=== PATIENT | male | born 1955 | race Caucasian/White ===

== ENCOUNTER 2018-05-23 12:37 | Day surgery (SDC) | payer OTHER, SELFPAY ==
--- NOTE | 2018-05-23 | PATH_ITS ---
[facility] Accession Number: [id number] . 01 Material submitted: . TRANSVERSE COLON POLYP AT 65CM . 02 Diagnosis: Transverse Colon Polyp at 65 cm: Colonic mucosa with no diagnostic abnormality, consistent with polypoid redundancy. Negative for serrated lesion, dysplasia or malignancy. Additional step sections examined. MRV/05/28/2018 . 02 Electronically signed: . Rg Carcamo MD, PhD, Pathologist NPI- [id number] . 01 Gross description: . TRANSVERSE COLON POLYP AT 65CM: Received in formalin are 2 fragment(s) of rivas, soft tissue measuring 0.4 x 0.3 x 0.2 cm to 0.3 x 0.3 x 0.2 cm submitted entirely in 1 cassette(s) /CKI /CKI . 02 Pathologist provided ICD-10: K63.5 . 02 CPT . 386983 Specimen Comment: A duplicate report has been generated due to demographic updates. Performed at: 01 [facility] [address], [place], [place] [id number] MD Odin Conrad MD Phone: [phone] Performed at: [facility] [address] [place], [place] [id number] MD Davy Horn MD Phone: [phone]
[2018-05-23 13:01] VITALS: BP 140/81; PULSE 44; RESP 15; TEMP 36.4; O2SAT 97; BMI 29.1
[2018-05-23] MEDS: SODIUM CHLORIDE 0.9% 1,000 ML 200 ML IV (13:18)
--- NOTE | 2018-05-23 13:58 | PM.HP.1 ---
History of Present Illness Date Patient Seen: 05/23/18 Time Patient Seen: 13:58 Chief complaint: 40548 SCREENING COLONOSCOPY Narrative: 63-year-old male who presents for colorectal screening. It has been 10 years since his last examination. On further history today he denies any recent gastrointestinal symptoms. No nausea, vomiting, diarrhea, constipation, change in bowel habits, loss of appetite, unexplained weight loss, abdominal pain, melena, hematochezia, or bright red blood per rectum. Patient History Medical History Snoring (Chronic) Obstructive sleep apnea of adult (Chronic) Excessive daytime sleepiness (Chronic) Benign prostatic hyperplasia (Acute) Erectile dysfunction (Chronic) Panic anxiety syndrome (Chronic) Raynauds syndrome (Chronic) Surgical History History of arthroscopy of both knees (Acute) History of colonoscopy (Acute) Family & Social History Family History: Reviewed 05/23/18 by Michael Morris MD Social History: household members spouse Meds Home Medications Medication Instructions Recorded Confirmed Type amlodipine 5 mg PO DAILY 05/23/18 05/23/18 History citalopram [Celexa] 20 mg PO DAILY 05/23/18 05/23/18 History Allergies Allergy/AdvReac Type Severity Reaction Status Date / Time No Known Drug Allergies Allergy Verified 05/23/18 12:57 Review of Systems Review of Systems All systems reviewed & are unremarkable except as noted in HPI and below Exam Vital Signs (past 8 hours): - 05/23/18 13:01 Temperature 97.6 F Pulse Rate 44 L Respiratory Rate 15 Blood Pressure 140/81 Pulse Oximetry 97 Oxygen Delivery Method Room Air Narrative Exam Narrative: Well-nourished well-developed male in no acute distress. Alert oriented x3 Sclera nonicteric Chest clear to auscultation bilaterally with regular rate and rhythm. No murmurs. Abdomen soft, nondistended, nontender, no masses Extremities show no clubbing, cyanosis, or edema Objective Labs Labs: No recent laboratory or radiographic studies for review Assessment & Plan Plan: Assessment/Plan Narrative: 63-year-old male presenting for colorectal screening since it has been 10 years from his last examination. Colonoscopy is once again recommended today. Technical details of the procedure were discussed. Risks, benefits, alternatives were explained. Risks including but not limited to sedation, aspiration, bleeding, pain, missed lesion, incomplete examination, need for further radiographic studies, colonic perforation, need for major abdominal surgery, and all attendant risks of major surgery were explained in detail. Questions were answered to his satisfaction, and he voiced understanding. Consent was placed on the chart. We will proceed as above.
--- NOTE | 2018-05-23 14:01 | PM.PREOP ---
Pre-operative Note Interval Note Pre-op Check: Yes History & Physical Reviewed by Physician, Yes Exam Performed and Yes History & Physical exam performed today by Physician Changes: No H&P completed within 30 days and has changed as indicated here:: Patient seen and examined today. History physical examination placed on the chart. He requires colorectal screening. Colonoscopy will proceed today as planned. ASA Class (for procedural sedation): II
[2018-05-23] MEDS: MIDAZOLAM 5 MG/5 ML VIAL IV (14:11)
[2018-05-23] MEDS: fentaNYL 250 MCG/5 ML INJ IV (14:11)
--- NOTE | 2018-05-23 14:21 | PM.OP.ENDO ---
Operative Date/Time/Diagnoses Date of procedure: 05/23/18 Time of procedure: 14:21 Pre-op diagnosis: Colorectal screening Post-op diagnosis: other (Transverse colon polyp and sigmoid diverticulosis) Procedure & Clinicians Study performed: 1. Sedation per surgeon 2. Colonoscopy with cold forceps polypectomy Same procedure as scheduled: Yes Indications: 63-year-old male whose last colorectal surveillance examination was 10 years ago. He presents now for colonoscopy. Surgeon: Michael Morris Procedure Notes SCOAP/Timeout: Yes Procedure in detail: After obtaining informed consent, the patient was brought to the GI suite and placed in the left lateral decubitus position on the examination table. After placement of appropriate monitors, the patient was given incremental doses of Versed and Fentanyl until an appropriate level of sedation was achieved. A time out was held per SCOAP protocol. A digital rectal examination was performed and did not reveal any masses or obstructing lesions. The colonoscope was gently passed into the patient's anus and the entire colon navigated to the level of the cecum with minimal difficulty. Once in the cecum, the scope was withdrawn being sure to go before and beyond all mucosal folds and prominences and get an excellent examination. The findings are noted above. At the level of the rectal vault, the scope was retroflexed and the internal anal canal was examined. The scope was straightened and air aspirated from the colon. The instrument was removed from the patient's body and the procedure was concluded. The patient was allowed to awaken from sedation without difficulty and taken to the post-anesthesia care unit in good condition. Scope withdrawal time: 9:28 min Sedation minutes: 17 Findings: diverticulosis and polyp Specimen(s): other (Transverse colon polyp at 65 cm) Complications: none Recommendations: Colonscopy in 5 years (Pending biopsy results), High fiber diet and Will call with biopsy results Plan for aftercare: 1. Discharged home Follow up: as needed Disposition: PACU
[2018-05-23 14:24] VITALS: BP 127/80; PULSE 44; RESP 15; O2SAT 97
[2018-05-23 14:29] VITALS: BP 121/82; PULSE 42; RESP 15; O2SAT 95
[2018-05-23 14:34] VITALS: BP 120/79; PULSE 44; RESP 16; O2SAT 98
[2018-05-23 14:40] VITALS: BP 120/76; PULSE 44; RESP 16; O2SAT 100
== END 2018-05-23 14:50 | disposition home or self-care (01) ==
PROVIDERS: PCP Specialist; Visit Provider Surgery
PROC: 0DJD8ZZ Inspection of Lower Intestinal Tract, Via Natural or Artificial Opening Endoscopic (ICD-10-PCS; CPT 45378; principal; 2018-05-23 14:00)
DX: Z12.11 Encounter for screening for malignant neoplasm of colon (principal); K57.30 Diverticulosis of large intestine without perforation or abscess without bleeding; G47.33 Obstructive sleep apnea (adult) (pediatric); F41.0 Panic disorder [episodic paroxysmal anxiety]; I73.00 Raynaud's syndrome without gangrene; D12.3 Benign neoplasm of transverse colon
CPT/HCPCS: 45380; 99152; J2250; J3010

== ENCOUNTER → 2023-12-25 13:44 | Outpatient (CLI) | payer OTHER, SELFPAY ==
--- NOTE | 2023-12-25 13:48 | DI.RAD.S_ITS ---
PROCEDURE: XR THORACIC SPINE 3V INDICATIONS: thoracic back pain TECHNIQUE: 3 views of the thoracic spine were acquired. COMPARISON: None. FINDINGS: Bones: No fractures or dislocations. No suspicious bony lesions. Mild degenerative endplate changes are noted in mid to lower thoracic spine. 12 pairs of ribs are noted, and appear intact where visualized. Soft tissues: No paravertebral stripe thickening. IMPRESSION: Mild degenerative disc disease in mid to lower thoracic spine. No acute compression fracture or spondylolisthesis. Dictated by: Edward Azar M.D. on 12/25/2023 at 20:21 Approved by: Edward Azar M.D. on 12/25/2023 at 20:21
--- NOTE | 2023-12-25 13:48 | DI.RAD.S_ITS ---
PROCEDURE: XR LUMBAR SPINE MIN 4V INDICATIONS: low back pain TECHNIQUE: 5 views of the lumbar spine were acquired, including bilateral oblique views. COMPARISON: None. FINDINGS: Bones: 5 nonrib-bearing vertebrae are present. There is normal bony alignment.Degenerative endplate changes and loss of disc height at L3-4 through L5-S1 levels are seen with bilateral facet arthrosis. No vertebral body compression fractures. No suspicious bony lesions. Soft tissues: Overlying bowel gas pattern is normal. No suspicious soft tissue calcifications. Oblique images: No pars defects. IMPRESSION: [id number] degenerative disc disease in mid to lower lumbar spine. No acute compression fracture or spondylolisthesis. No gross pars defects. Dictated by: Edward Azar M.D. on 12/25/2023 at 20:20 Approved by: Edward Azar M.D. on 12/25/2023 at 20:20
== END ==
PROVIDERS: PCP Specialist; Referring Provider Anesthesiology; Visit Provider Anesthesiology
DX: M51.34 Other intervertebral disc degeneration, thoracic region (principal); M51.36 Other intervertebral disc degeneration, lumbar region; M54.50 Low back pain, unspecified
CPT/HCPCS: 72072; 72110

== ENCOUNTER → 2024-11-19 10:11 | Outpatient (CLI) | payer OTHER, SELFPAY ==
--- NOTE | 2024-11-19 10:12 | DI.RAD.S_ITS ---
PROCEDURE: XR CERVICAL SPINE 4V OR 5V INDICATIONS: NECK PAIN TECHNIQUE: 5 views of the cervical spine acquired. COMPARISON: None. FINDINGS: Bones: No acute fractures or dislocations to the T1 level. Oblique images demonstrate no bony foraminal stenoses. Multilevel disc space narrowing and degenerative endplate changes. Multilevel uncovertebral joint and facet hypertrophy. Oblique views demonstrate multifocal neural foraminal narrowing, most notably at the C3-4 through C5-6 levels on the left. Right neural foramina at the mid cervical spine levels are not well evaluated due to positioning. Right C2-3, C6-7 and C7-T1 neural foramina appear patent. Soft tissues: No prevertebral soft tissue swelling. IMPRESSION: 1. No acute osseous fracture or traumatic subluxation. 2. Moderate multilevel cervical spondylosis with neural foraminal narrowing. MRI could be performed for further evaluation if indicated clinically. Approved by: Marc Monteiro M.D. on 11/19/2024 at 10:32
== END ==
PROVIDERS: PCP Specialist; Referring Provider Physical Medicine & Rehabilitation; Visit Provider Physical Medicine & Rehabilitation
DX: M47.812 Spondylosis without myelopathy or radiculopathy, cervical region (principal); M48.02 Spinal stenosis, cervical region; M54.2 Cervicalgia; M16.0 Bilateral primary osteoarthritis of hip; M47.816 Spondylosis without myelopathy or radiculopathy, lumbar region; M51.27 Other intervertebral disc displacement, lumbosacral region; M25.552 Pain in left hip
CPT/HCPCS: 20611; 72050; 99214; J0702

== ENCOUNTER → 2025-06-09 11:58 | Outpatient (CLI) | payer OTHER, SELFPAY ==
--- NOTE | 2025-06-09 12:06 | EKG_ITS ---
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
== END ==
PROVIDERS: PCP Specialist; Referring Provider Orthopaedic Surgery Adult Reconstructive Orthopaedic Surgery; Visit Provider Orthopaedic Surgery Adult Reconstructive Orthopaedic Surgery
DX: Z01.818 Encounter for other preprocedural examination (principal)
CPT/HCPCS: 93005; 93010

== ENCOUNTER 2025-07-06 08:33 | Day surgery (SDC) | payer MEDICARE, OTHER, SELFPAY ==
[2025-07-01 13:25] VITALS: BMI 30.4
[2025-07-06] VITALS (12 sets, daily range): BP systolic 92–168; BP diastolic 51–81; PULSE 50–62; RESP 14–18; TEMP 35.6–36.6; O2SAT 90–99; BMI 35.6
--- NOTE | 2025-07-06 | DI.RAD.S_ITS ---
PROCEDURE: XR HIP W PEL IF DONE RT 2V
--- NOTE | 2025-07-06 06:00 | DI.RAD.S_ITS ---
PROCEDURE: XR HIP W PEL IF DONE RT 2V
[2025-07-06] MEDS: ACETAMINOPHEN 325 MG TABLET 975 MG PO (09:07)
[2025-07-06] MEDS: MELOXICAM 7.5 MG TABLET 15 MG PO (09:08)
[2025-07-06] MEDS: LACTATED RINGERS 1,000 ML 42 ML IV ×2 (09:09→11:36)
--- NOTE | 2025-07-06 09:43 | P.OP.PRE_ITS ---
Pre-operative Note
--- NOTE | 2025-07-06 09:43 | PM.PREOP ---
Pre-operative Note Interval Note History & Physical reviewed/Exam performed by Physician: Yes Changes to H&P: No
[2025-07-06] MEDS: TRANEXAMIC ACID 1,000 MG VIAL 1000 MG INJ ×2 (11:03→12:10)
[2025-07-06] MEDS: KETOROLAC 30 MG/ML VIAL 15 MG INJ (11:16)
--- NOTE | 2025-07-06 11:22 | SUR.OPER ---
Supine on padded [place] table with bilateral legs secured in padded positioning boots and suspended in positioning spars, operative leg in traction per surgeon. Head on one pillow. Both Arms secured on padded armboard <90 degrees abduction. Padded perineal post in place per surgeon. Surgeon in room to approve final position. All pressure points padded and covered.
--- NOTE | 2025-07-06 12:14 | P.OP_ITS ---
Operative Date/Time/Diagnoses
--- NOTE | 2025-07-06 12:14 | PM.OP.1 ---
Operative Date/Time/Diagnoses Date of procedure: 07/06/25 Time of procedure: 11:00 Pre-op diagnosis: Right hip osteoarthritis Post-op diagnosis: same Procedure & Clinicians Procedure: Right total hip arthroplasty Same procedure(s) as scheduled: Yes Surgeon: Antonio Holm Assisted?: Yes Community Engagement Leader: Shanna Lyles Anesthesia Type: Spinal, Sedation and Local Operative Notes Findings: Severe right hip arthritis Closure Type: primary Applied: implant(s) Estimated Blood Loss (mL): 250 Blood products transfused: none Procedure in detail: 1. Right Uncemented Direct Anterior [place] Total Hip Arthroplasty (50651) 2. Computer-Assisted Musculoskeletal Surgical Navigational Orthopedic Procedure Using Fluoroscopic Image Guidance (0054T) Implants: G7 PPS size 62 cup?with a +5 liner Z1 femoral stem size 9 standard offset? 40 mm +3.5 ceramic femoral head? Procedure Summary: This 70-year-old male patient had very robust bone quality and relatively large anatomy. He is 6 feet tall and 260 lb. Accordingly I utilized a large cup, 62 and utilized a lateralized liner in order to restore his [place] offset. After evaluation with the ortho grid I noted that he actually had excessive offset but leg lengths was appropriate and the stability was excellent as I was unable to manually reduce the hip without assistance through the traction table. I therefore implanted a standard offset stem which had less tension with the final construct was still excellent stability as I was unable to manually dislocate the hip. Procedure in Detail: This patient was seen preoperatively and evaluated for hip pain which was refractory to numerous nonoperative treatment modalities. Their hip pain correlated with radiographic changes demonstrating significant degeneration in the hip joint. The risks and benefits of continued nonoperative management versus operative management were discussed at length and all of the patient?s questions were answered. Additional educational materials providing further details beyond our discussion in clinic were provided via a publicly available patient education video which included the incidence of medical complications associated with total hip arthroplasty, reasons for revision following total hip arthroplasty, and patient satisfaction rates following total hip arthroplasty. With this understanding of the risks inherent to the procedure, the patient elected to move forward with operative management. Following preoperative optimization, the patient was scheduled for surgery. The patient was met in the preoperative holding area the day of the procedure and all questions were answered. The patient?s nares were swabbed in order to decolonize them from MRSA. Informed consent was signed and the right limb was marked with indelible ink.? The patient was brought back to the operating room where anesthesia was induced. The patient was transferred to the [place] table and all bony prominences were padded. The operative site was prepped and draped in the usual sterile fashion. Prior to incision, tranexamic acid and cefazolin were administered. Operative templating images were displayed demonstrating the anticipated implant sizes and correct operative extremity. A timeout procedure was performed verifying the patient?s identity, medical comorbidities, allergies, relevant medications, anesthesia type and the surgical plan. All present were in agreement. The assistance of a physician academic support assistant was required for positioning, room setup, soft tissue retraction and wound closure. Without this assistance, the procedure would have been significantly more challenging and time consuming.?? A direct anterior approach to the hip was utilized. This was performed with a longitudinal incision through a Heuter interval. The incision was planned 2 cm distal and 2 cm lateral to the ASIS extending towards the lateral patella, in line with the muscle body of the TFL. Following incision, the subcutaneous tissue was dissected while taking care to avoid injury to the lateral femoral cutaneous nerve. The fascia overlying the TFL was identified by dissecting off the overlying fat and identifying perforating vessels to the TFL. The TFL fascia was incised and dissected away from the medial border of the TFL. A retractor was placed over the superior femoral neck between the abductors and the hip capsule and used to reflect the TFL laterally. A [place] self-retainer was then placed in the distal aspect of the wound between the TFL and the rectus femoris. This was tensioned to open up the direct anterior interval and the lateral circumflex vessels were identified and coagulated using electrocautery. The floor of the TFL fascia was incised, exposing the pericapsular fat overlying the hip capsule. A second cobra retractor was placed on the inferior femoral neck. A retractor was placed on the anterior wall of the acetabulum and used to tension the reflected head of rectus femoris, which was then released in order to limit soft tissue tension. A capsulotomy was made in the midline of the anterior hip capsule in line with the femoral neck ending at the vastus tubercle. The anterior retractor was removed as soon as the capsulotomy was completed in order to limit the amount of time that a soft tissue retractor remained on the anterior wall and limit tension on the femoral nerve. Tag stitches were placed in the superior and inferior leaflets of the hip capsule. An Jeff soft tissue retractor was introduced over the tag stitches and tensioned in the interval between the rectus femoris and the TFL in order to retract and protect those muscles. The cobra retractors were replaced intracapsularly, with one over the superior neck in the pocket created by the base of the greater trochanter and the other on the femoral head. The capsulotomy was extended laterally to the base of the greater trochanter and medially to the lesser trochanter. This required externally rotating the hip. Once the lesser trochanter had been identified, a neck cut was planned according to measurements from preoperative templating. A ruler was cut at the length measured between the superior aspect of the lesser trochanter and the collar of the prosthesis. This line was extended towards the inferior aspect of the lateral cobra retractor to plan a cut which would leave minimal residual femoral neck laterally. The neck was cut at 60 degrees of external rotation along that line. A second cut was performed to remove a large napkin ring and facilitate head extraction. The napkin ring cut and femoral head were removed.?? A broad anterior wall retractor was placed between the labrum and the anterior capsule so that the anterior capsule would prevent capturing and pinching the femoral nerve anteriorly. An additional retractor was placed on the posterior wall. External rotation and traction were applied through the [place] table so that the cut surface of the femoral neck would not restrict access to the acetabulum. The labrum was excised sharply and the pulvinar was excised with electrocautery to limit bleeding from branches of the obturator artery. Acetabular reamers were selected based on preoperative templating and measurements of the excised femoral head. These were introduced into the acetabulum. Fluoroscopy was utilized to replicate a standing AP pelvis radiograph by centering over the pelvis, rotating until there was appropriate symmetry between the obturator foramen, and introducing caudal tilt to match the position of the pubic symphysis relative to the sacrococcygeal junction according to the patient?s anatomy. Once satisfied with the reaming depth corresponding to the preoperative template and the pinch fit between the columns, an appropriate sized acetabular cup was selected which would provide 1 mm of press-fit. This cup was introduced and manipulated until appropriate abduction and anteversion angles were obtained with careful attention to appropriate abduction and anteversion angles as evaluated by the position of the cup relative to the anterior and posterior guerrero of the acetabulum and the AP fluoroscopy which recreated the patient?s standing radiograph. The cup was impacted into place. Peripheral osteophytes were removed. The acetabular liner was then placed with care to ensure locking of the locking mechanism. Attention was then turned to the femur. All retractors were removed, traction was released, a retractor was placed in the interval between the hip capsule and the gluteus minimus. The lateral capsule was released using electrocautery. Traction was released and a [place] hook was placed posteriorly around the proximal femur at the level of the vastus ridge. The table height was lowered in order to restrict the tension on the anterior structures during hip hyperextension to limit the risk of femoral nerve palsy. With traction off and the hip at 90 degrees of external rotation, the hip was hyperextended and adducted while manually elevating the femur away from the acetabulum with the [place] hook to avoid hooking the greater trochanter on the pelvis. An asymmetric retractor was placed over the calcar and a broad double-pronged retractor was placed over the greater trochanter. The tag stitch capturing the lateral leaflet of the capsule was moved to the medial side, leaving the conjoined and piriformis tendons isolated in the face of the greater trochanter. The hip was externally rotated and elevated. A release of the conjoined tendon was necessary in order to obtain adequate exposure for broaching. The canal was opened with an opening broach and a rasp was used to remove cancellous bone. A rongeur was used to remove the residual lateral bone at the base of the greater trochanter to avoid placing the stem in varus. The femur was then broached to the appropriate sized stem yielding good rotational fit and fill of the canal as well as appropriate version of the stem trial. Neck and head trials were placed, all retractors were removed and the hip was returned to neutral abduction and extension. I then reduced the hip and manually trialed it before changing surgical gloves. Initial trialing was performed with a size 8 broach, a high offset neck and a +3.5 head. I initially manually externally rotated the hip and found that I could not dislocate the hip. I also found that it was very hard to even reduce the hip as I was unable to reduce the hip without assistance from a fracture table academic support assistant. I then locked the hip in 45 degrees of external rotation and dropped it to the floor with traction off which demonstrated no instability. An ortho grid overlay image demonstrated that the operative site had appropriate leg lengths but excess offset. AP and lateral hip fluoroscopic images were obtained to evaluate the broach size which demonstrated good canal fill. The hip was dislocated and I returned to the broaching position. Based on my evaluation during initial trialing I planned to transition from a high offset to a standard offset. When I returned to the broaching position I found that the stem was rotationally unstable so I upsized from a size 8 to a size 9 and sink the broach down to the same point at which the size 8 had sat. The definitive stem was placed and the trunnion was cleaned and dried. I placed a ceramic head onto the trunnion and impacted it into place on the [place] taper.?? All retractors were removed and the hip was reduced. A dilute mixture of betadine and peroxide was used to bathe the soft tissues during final fluoroscopic assessment. Appropriate component positioning was confirmed on an AP pelvis radiograph with the operative and nonoperative legs in 40 degrees of external rotation, evaluating leg length and offset. Appropriate stem fill was evaluated on AP and lateral hip radiographs. No previously unrecognized fractures were identified on these radiographs. There was no hip instability with maximum (95?) external rotation as well as a 45 degree drop test. The hip was copiously irrigated with pulse lavage. The capsule was closed with absorbable interrupted suture. The TFL fascia was closed with barbed suture while carefully protecting the lateral femoral cutaneous nerve from entrapment. A mixture of Ropivacaine, Epinephrine and Toradol was infiltrated throughout the soft tissues. The skin was closed with 2-0 and 3-0 sutures. Surgical glue was applied and a soft dressing was placed.??The sponge, instrument and needle counts were reported as being correct at the end of the case.??No obvious complications occurred. The patient was transferred from the [place] table back to a stretcher. The patient emerged from anesthesia without difficulty and was taken to the PACU in a stable condition.? Plan for aftercare: No hip precautions Weightbearing as tolerated Aspirin 81 twice per day for DVT prophylaxis Anticipate discharge home tomorrow. Patient will require [facility] transport home Multimodal pain regimen with no IV opioids ordered Follow up at [facility] in 2 weeks Complications: none Post-operative Condition: stable Disposition: observation
[2025-07-06] MEDS: LACTATED RINGERS 1,000 ML 100 ML IV ×2 (13:43→17:47)
--- NOTE | 2025-07-06 15:36 | PM.PN.IH.1 ---
Subjective Subjective Interval history: I came to check on Amol postoperatively. I found him resting comfortably. He had noticed cancelling headphones on and was listening to a postoperative recovery music playlist. He also has a meditation hakeem that he says he has been using for pain control the he plans to continue using postoperatively. He has minimal pain. He has intact sciatic and femoral nerve function. His dressing is clean dry and intact. Given his need for [employer] transportation home we are going to have him stay overnight and plan to discharge him in the morning after he has had a physical therapy session. Exam Vital Signs (past 8 hours): - 07/06/25 09:29 07/06/25 13:00 07/06/25 13:06 Temperature 97.8 F 97.7 F 97.7 F Pulse Rate 53 L 56 L 57 L Respiratory Rate 16 14 18 Blood Pressure 168/81 H 92/51 L 99/54 L Pulse Oximetry 99 98 98 Oxygen Delivery Method Room Air Simple Mask Nasal Cannula Oxygen Flow Rate 6 2 07/06/25 13:12 07/06/25 13:17 07/06/25 13:25 Temperature 97.4 F L 97.5 F L 96.1 F L Pulse Rate 60 52 L 50 L Respiratory Rate 18 15 16 Blood Pressure 106/55 L 115/70 112/55 L Pulse Oximetry 97 97 96 Oxygen Delivery Method Nasal Cannula Nasal Cannula Oxygen Flow Rate 2 2 2 Oxygen Delivery Method Nasal Cannula Oxygen Flow Rate 2 [facility] Medical History (Updated 07/01/25 @ 13:21 by Tamela Garibay RN) Anxiety Herniated nucleus pulposus, L5-S1 Bilateral hip pain Bilateral primary osteoarthritis of hip Lumbar spondylosis Low back pain Benign prostatic hyperplasia Erectile dysfunction Panic anxiety syndrome Raynauds syndrome Snoring Obstructive sleep apnea of adult Excessive daytime sleepiness Surgical History (Updated 07/01/25 @ 14:17 by Tamela Garibay RN) Hx of wisdom tooth extraction History of thoracotomy (~2021) History of arthroscopy of both knees History of colonoscopy Social History marital status: details: sallie Collins, lives in [place] household members: spouse lives independently: Yes caregiver/support person: No housing: house Smoking Status: Never smoker alcohol intake: current Assessment & Plan Time-Based Coding :: [TOTAL MINUTES] spent with patient and on the chart (including review of chart, obtaining history, exam, reviewing outside data, placing orders, documenting exam and treatment plan, and counseling patient) on [DATE]. 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
--- NOTE | 2025-07-06 17:25 | PT.IIE ---
Current Diagnoses Unilateral primary osteoarthritis, right hip (07/06/25) Surgery Performed Operation Date: 07/06/25 11:15 Actual Procedures p Total Hip Arthroplasty/Anterior Approach(Right) - Antonio Holm MD Surgical History (Last Updated 07/01/25 @ 14:17 by Tamela Garibay, RN) History of arthroscopy of both knees History of colonoscopy History of thoracotomy (~2021) Hx of wisdom tooth extraction Medical History (Last Updated 07/01/25 @ 13:21 by Tamela Garibay, RN) Anxiety Benign prostatic hyperplasia Bilateral hip pain Bilateral primary osteoarthritis of hip Erectile dysfunction Excessive daytime sleepiness Herniated nucleus pulposus, L5-S1 Low back pain Lumbar spondylosis Obstructive sleep apnea of adult Panic anxiety syndrome Raynauds syndrome Snoring Physical Therapy Inpatient Evaluation/Re-Eval M1 PT IP Prior Functional Status Start: 07/06/25 17:12 Freq: NEEDED Status: Active Protocol: Document 07/06/25 17:12 SAK (Rec: 07/06/25 17:25 SAK [id number]) Medical Review Prior Functional Status Medical History Yes Reviewed Diet/Fluid Regular Consistency Communication indep Mobility and Gait indep Activities of Daily indep Living and IADL's Social History Household Members spouse Living Arrangements House Number of Floors ( Two Floors Floors) Number of Stairs To 5, 1 railing Enter/Railing? Home Environment Standard Height Toilet Home Equipment Front Wheel Walker M2 PT-IP Current Condition Start: 07/06/25 17:12 Freq: NEEDED Status: Active Protocol: Document 07/06/25 17:12 SAK (Rec: 07/06/25 17:25 SAK [id number]) Physical Therapy Current Condition Current Condition Evaluation Date 07/06/25 Treatment Diagnosis s/p right KELLEY Onset Date 07/06/25 M3 PT-IP Subjective Start: 07/06/25 17:12 Freq: NEEDED Status: Active Protocol: Document 07/06/25 17:12 SAK (Rec: 07/06/25 17:25 SAK [id number]) Subjective Physical Therapy Visit Type Type Initial Evaluation Visit Start Time 15:05 Visit Stop Time 15:31 Physical Therapy Visit Comments Patient Comments Patient willing to do PT. Plan is to go home with assist of . Therapy Pain Assessment Pain When Pain Assessed At Rest Pain Present Pain Present Pain Reported Location Right Hip Intensity 3 Scale Used Numeric (0 - 10) M4 PT-IP Mobility and Gait Start: 07/06/25 17:12 Freq: NEEDED Status: Active Protocol: Document 07/06/25 17:12 SAK (Rec: 07/06/25 17:25 SAK [id number]) PT-Bed Mobility Assessment Rolling Level of Assist Minimal Assistance Supine to Sit Supine to Sit Minimal Assistance Sit to Supine Sit to Supine Minimal Assistance Scooting Scooting to Edge of Contact Guard Assistance Bed PT-Transfer Assessment Sit to and From Stand Sit to and from Minimal Assistance Stand Equipment Transfer Assistive Gait Belt,Front Wheeled Walker Device Orthotic/Prosthetic No Devices or Brace: Transfer Ability Level of Assist Contact Guard Assistance Comments Mobility Comments cues for hand placement, bed mobility technique Gait Assessment Gait Gait Assistance Minimum Assistance Required: Distance (Feet) 6 Able to Maintain Yes Weight Bearing Status During Gait Assistive Devices Assistive Device Gait Belt,Front Wheeled Walker Gait Deviations General Gait Pattern Antalgic,Decreased Stride Length,Decreased Feet Clearance Factors Limiting Gait Function Factors Limiting Decreased Activity Tolerance,Decreased Strength,Pain Gait Function Stair Climbing Assessment Comments Stair Climbing do stair training in am Comments M5 PT-IP Objective Assessments Start: 07/06/25 17:12 Freq: NEEDED Status: Active Protocol: Document 07/06/25 17:12 [facility] (Rec: 07/06/25 17:25 [facility] [id number]) Orientation Orientation/Cognition Level of Alertness Alert Orientation Name,Age,Situation Safety Awareness Understands Safety Issues Gross Range of Motion Upper Extremity ROM Assessment Within Functional Limits Lower Extremity ROM Assessment Right Impaired Strength Upper Extremity Strength Assessment Within Functional Limits Lower Extremity Strength Assessment Right Impaired Comments Strength Comments mod assist for heelslide right Sensation Assessment Sensation Gross Sensation Right LE Impaired Sensation Paresthesia Description M6 PT-IP Treatment Start: 07/06/25 17:12 Freq: NEEDED Status: Active Protocol: Document 07/06/25 17:12 SAK (Rec: 07/06/25 17:25 SAK [id number]) Physical Therapy Treatment Exercises Exercises Ankle Pumps,Gluteal Sets,Quad Sets,Heel Slides Education Education Provided Weight Bearing Status,Post-Op Packet,Safety M7 PT-IP Assessment and Plan Start: 07/06/25 17:12 Freq: NEEDED Status: Active Protocol: Document 07/06/25 17:12 SAK (Rec: 07/06/25 17:25 SAK [id number]) PT Summary Assessment and Plan Potential Rehabilitation Good Potential Status of Condition Evolving at Evaluation Summary Impairments Pain,Strength,Bed Mobility,Transfers,Gait,Activity Tolerance Assessment Summary Patient seen for PT evaluation s/p right KELLEY (ant) 06/20. Patient instructed in HEP, issued post-op packet. Bed mobility and transfers with min assist. Gait 6 ft in room with patient reporting fatigue, not able to tolerate further activity. His plan is to be discharged home and that seems realistic, will need stair training in am. Goals Bed Mobility Goal Standby Assistance Transfer Goal Standby Assistance Gait Goal Standby Assistance Gait Distance 50 Days to Meet Goals 7 Frequency of Treatment Frequency Of Once a Day Treatment Treatment Plan Physical Therapy Bed Mobility Training,Transfer Training,Gait Training, Treatment Plan Therapeutic Exercise,Post Op Education Weight Bearing Status Weight Bearing Weight Bear as Tolerated Status Recommendations To Nursing Amount of Assist 1 Person Assist Needed Discharge Recommendations PT Discharge Home with Assistance,Outpatient PT Recommendations
[2025-07-06] MEDS: ACETAMINOPHEN 325 MG TABLET 650 MG PO (17:47)
[2025-07-06] MEDS: ASPIRIN EC 81 MG TABLET PO (20:38)
[2025-07-06] MEDS: DOCUSATE 100 MG CAPSULE PO (20:38)
[2025-07-06] MEDS: CITALOPRAM 10 MG TABLET 20 MG PO (20:38)
[2025-07-06] MEDS: IBUPROFEN 600 MG TABLET PO (20:40)
[2025-07-06] MEDS: TAMSULOSIN 0.4 MG CAPSULE 0.8 MG PO (21:49)
[2025-07-07] MEDS: ACETAMINOPHEN 325 MG TABLET 650 MG PO ×2 (00:33→06:36)
[2025-07-07] MEDS: IBUPROFEN 600 MG TABLET PO ×2 (01:40→06:36)
[2025-07-07] MEDS: LACTATED RINGERS 1,000 ML 100 ML IV (01:46)
[2025-07-07 03:50] VITALS: BP 143/55; PULSE 60; RESP 18; TEMP 36.6; O2SAT 98
[2025-07-07] MEDS: ONDANSETRON 4 MG ODT PO (06:43)
--- NOTE | 2025-07-07 07:27 | P.DS_ITS ---
History of Present Illness
--- NOTE | 2025-07-07 07:27 | PM.DS.IH.1 ---
History of Present Illness History of Present Illness Chief complaint: R KELLEY Narrative: 70 year old male with a past medical history of obstructive sleep apnea presented to [facility] on 07/06/25 for planned direct anterior total hip arthroplasty by Dr. Holm. ?This elective procedure was indicated by chronic right hip arthritis limiting his normal activities of enjoyment and living. He described his pain as knife like as well as sore and tight.?On the date of surgery there were no changes of the medical history, medications or allergies. Consent had been obtained and the patient was in agreement to proceed with planned surgery. This morning the patient reports he is doing well with moderate pain after surgery. Pain has been controlled with oral medications including tylenol and ibuprofen. He did not take any oxycodone overnight. The patient has worked with physical therapy. The patient denies chest pain, dyspnea, nausea, emesis, fever and chills. He is making urine spontaneously. The patient has all of their post operative medications at home. He report mild nausea this morning and lightheadedness when moving from a supine position to seated on the end of the bed. There are no changes in vision. He reports continued muscle spasms about the right hip and low back that is limiting his ability to sleep at night. He also had urinary retention last night and he was straight cathed with a return of over 500 cc. His tamulosin dosage was also doubled. Now he is making urine spontaneously without issue. Patient was reevaluated and lightheadedness and nausea had improved. He tolerated physical therapy and was amenable to discharge home. Discharge Providers Provider Discharge Date: 07/07/25 Primary care physician: Aby Dubois MD Consults: 07/06/25 06:00 Consult to Anesthesiology Routine Comment: Consulting Provider: Anesthesiologist Reason for consultation: Regional block for post-operative pain control 07/06/25 12:16 Consult to Occupational Therapy Evaluate & Treat Comment: Physician Instructions: Evaluate and treat Consult to Physical Therapy Evaluate & Treat Comment: Physician Instructions: Evaluate and Treat Discharge provider: KYLE Fernandez Dr Summary Hospital Course Hospital Course: On 07/06/25 the patient was brought to the operating room for planned direct anterior right total hip arthroplasty by Dr Holm.? There were no known intraoperative complications.? The patient was transferred to the postoperative recovery area and monitored appropriately.? Later the patient was transferred to the acute care unit [facility] for monitoring overnight and physical therapy.? There were no acute events overnight but he did have some urinary retention which has resolved.? On postoperative day 1, the patient's vital signs were stable and he was making urine spontaneously.? The patient denied chest pain, dyspnea and emesis on postoperative day 1.?He had some nausea and lightheadeness. Physical therapy assessment was for discharge home with out patient physical therapy.? Pain was well-controlled on oral analgesics and the patient was in agreement with preoperative plan to discharge home on postoperative day 1. Exam Vital Signs (past 8 hours): - 07/07/25 03:50 Temperature 97.9 F Pulse Rate 60 Respiratory Rate 18 Blood Pressure 143/55 H Pulse Oximetry 98 Oxygen Flow Rate 0 Oxygen Delivery Method Nasal Cannula Oxygen Flow Rate 0 Narrative Exam Narrative: well developed, well nourished, 70 year old male, no acute distress aquacell dressing is intact to the right hip with 1cm drainage about the dressing. There is ecchymosis about the proximal aspect of the dressing. Effusion about the distal aspect of the dressing without warmth or erythema. Femoral and sciatic nerve function intact to the right leg with ankle dorsiflexion, plantar flexion, knee extension and EHL function. Sensation intact to the right foot. Right calf non tender to squeeze. [facility] Medical History (Updated 07/01/25 @ 13:21 by Tamela Garibay RN) Anxiety Herniated nucleus pulposus, L5-S1 Bilateral hip pain Bilateral primary osteoarthritis of hip Lumbar spondylosis Low back pain Benign prostatic hyperplasia Erectile dysfunction Panic anxiety syndrome Raynauds syndrome Snoring Obstructive sleep apnea of adult Excessive daytime sleepiness Surgical History (Updated 07/01/25 @ 14:17 by Tamela Garibay RN) Hx of wisdom tooth extraction History of thoracotomy (~2021) History of arthroscopy of both knees History of colonoscopy Social History marital status: details: to Karina, lives in [place] household members: spouse lives independently: Yes caregiver/support person: No housing: house Smoking Status: Never smoker alcohol intake: current Discharge Assessment & Plan Assessment and Plan Plan of Treatment: 70 year old male with a past medical history of obstructive sleep apnea is post operative day 1 from a right total hip arthroplasty by Dr. Holm at [facility] on 07/06/25. The patient is recovering well with appropriate pain control on oral analgesics and stable vital signs. Mepilex dressing changed by myself due to sanginous drainage.. He will work with physical therapy this morning and use his sandra wrap to control his muscle spasms as he used at home with succcess. Plan:? Weightbearing as tolerated to right lower extremity with front wheeled walker? No hip precautions? DVT prophylaxis with 81 mg of aspirin for 6 weeks post operatively? Continue multimodal analgesia with Tylenol, meloxicam and oxycodone? Bowel regimen as needed? Physical therapy evaluation and treatment today? Follow up with orthopedics 2 weeks post operatively? All post operative medications ordered at pre operative visit? Ice to surgical site as needed? All patient questions were answered and they verbalized agreement with the above plan. Call [facility] with any questions or concerns. Discharge Plan Discharge Plan Provider Discharge Comment: SURGICAL PROCEDURE: Right Total Hip Arthroplasty SURGEON: Dr. Holm at [facility] DATE: 07/06/25 ACTIVITY INSTRUCTIONS o You are weight bearing as tolerated to the right lower extremity with a front wheeled walker at all times. We encourage active movement of the toes and ankle every hour while awake to prevent stiffness. o You have no hip precautions o Limit your steps to no more than 1000 steps per day for the first week after surgery to limit swelling. o Do not drive while taking narcotic medications and recovering from your surgery. DRESSING CARE o You have an Aquacell dressing on top of your incision. This is a waterproof dressing and so you may shower with the dressing so long as the dressing remains clean and dry to the surgical site. Leave the dressing in place until your follow up in the orthopedic clinic. If the dressing becomes saturated or is disrupted call our office for further guidance. POST-OPERATIVE INSTRUCTIONS o If you notice fever, chills, night sweats, redness, excessive drainage or bleeding, a sharp increase in pain that persists after taking pain medication, pain in your calf muscles, chest pain or trouble breathing please unwrap the dressing and investigate. Then call the office with findings for further guidance. If it is after regular clinic hours, please seek care in the emergency department. o In the rare case of any severe chest pain and trouble breathing, seek immediate care, do not delay for a call to the clinic. o Use ice to the affected extremity for 15-30 minutes increments as much as possible. Use your ice machine as discussed in your pre-operative visit. o Keep extremity elevated to the level of the heart to reduce swelling. You can use ice on top of the dressing to reduce pain and swelling of the extremity. o You should consume a low sodium diet after surgery to limit swelling. You can gradually resume your normal diet if you have no nausea or vomiting o Physical therapy should begin about 7-10 days after surgery. Your first evaluation should already be scheduled. Call our office if you cannot schedule your therapy in the expected time frame. o Your follow up is already scheduled for 2 weeks after your surgery at the Orthopedic clinic. o You should have no dental procedures for 6 months following your total joint replacement. o Please refer to Dr. Holm?s educational videos on [employer] for a reference on your post operative care. Hip Replacement [email or web address] o Call [facility] at [phone] with any questions or concerns. MEDICATIONS o Please refer to the ?Orthopedic Medication Instructions? sheet provided at your pre-operative visit. Written instructions are provided below as a reminder. ? Take two pills of 500 mg Tylenol (acetaminophen) every 8 hours regardless of pain in a scheduled manner. Do not exceed 3000 mg of Tylenol (from ALL sources, including over the counter combination products) in a 24-hour period due to risk of liver injury. ? Take one pill of 5 mg oxycodone by mouth every 4-6 hours as needed for break through pain after taking your regular Tylenol and anti-inflammatory. ? Oxycodone is an opioid, which means it is similar to morphine, heroin or fentanyl. Our goal is for you to take as little of this as possible because the side effects from it can be very severe. If you are able to get through your recovery process taking 10 pills or less please share your story with other patients by logging onto https://[email or web address] and sharing what strategies you used to avoid these dangerous medications. You can also read other patients? stories on that website to get strategies that go above and beyond what we have discussed to help you manage this pain while avoiding opioids. ? Take one pill of oral meloxicam daily. This is NSAID (anti-inflammatory) medication to reduce swelling and pain. ? Take 200 mg of Colace by mouth every 12 hours for constipation. Narcotic medications such as oxycodone and tramadol as well as anesthesia may increase your risk of constipation after surgery. ? Take 4 mg of Zofran by mouth every 6 hours as needed for uncontrolled nausea or vomiting. If you have persistent nausea and vomiting call our office or seek care in the emergency department. ? Take one pill of 81 mg of aspirin two times daily 12 hours apart for 6 weeks for blood clot prevention. Take this medication regardless of pain. ? Take a proton pump inhibitor such as Pantoprazole or Omeprazole if you have a history of acid reflux or are noticing stomach irritation. NSAIDs and aspirin can both cause stomach irritation and that medication can help avoid stomach issues. o If you stopped taking a ?biologic? medication that you normally take for an issue such as rheumatoid arthritis or psoriasis prior to surgery, do not restart it until we have seen you back in clinic and confirmed that your wound is healed. o Resume all of your normal home medications tomorrow morning unless specified otherwise by your surgeon. Discharge orders & Medications Discharge Orders: Discharge (Order); Ordered 07/07/25 Ordered By: Shanna Lyles Prescriptions: Continued zolpidem 10 mg tablet 10 mg PO BEDTIME 30 Days Qty: 30 0RF cholecalciferol (vitamin D3) [Vitamin D3] 50 mcg (2,000 unit) capsule 50 mcg PO DAILY meloxicam 15 mg tablet 15 mg PO DAILY PRN (Reason: pain) Qty: 30 0RF pantoprazole 40 mg tablet,delayed release (DR/EC) 40 mg PO DAILY Qty: 30 0RF Rx Instructions: Take 1 tablet by mouth daily while taking the meloxicam oxycodone 5 mg capsule 5 mg PO Q6H PRN (Reason: pain (scale score 7-10)) Qty: 30 0RF Rx Instructions: Take 1 tablet of 5 mg oxycodone by mouth every 6 hours as needed for pain control docusate sodium [Colace] 100 mg capsule 100 mg PO BID Qty: 14 0RF Rx Instructions: Take 1 tablet of colace every 12 hours as needed for constipation while taking the narcotic medication aspirin 81 mg tablet 81 mg PO BID 42 Days Qty: 84 0RF Rx Instructions: Take 1 tablet of 81 mg every 12 hours for DVT prophylaxis for 4 weeks acetaminophen 500 mg capsule 1,000 mg PO TID PRN (Reason: pain) 14 Days Qty: 90 0RF amlodipine 5 mg tablet 5 mg PO DAILY citalopram 20 mg tablet 20 mg PO DAILY lorazepam 1 mg tablet 1 mg PO DAILY tamsulosin 0.4 mg capsule 0.4 mg PO DAILY Qty: 90 1RF Discontinued chlorhexidine gluconate [Hibiclens] 4 % liquid 1 applic topical DAILY Qty: 473 0RF Rx Instructions: Apply from the shoulders down when showering for 5 days leading up to surgery Follow up/Referrals: Aby Dubois MD [Primary Care Provider, Family Practice] Visit Report/Discharge Packet Print Language: [place] Discharge Data Primary Care Provider: Aby Dubois Attending Provider: Antonio Holm VTE Deep Vein Thrombosis/Pulmonary Embolism Present on Admission: No IH PROFEE Charge Codes Discharge inpatient/observation: 10225
[2025-07-07] MEDS: ASPIRIN EC 81 MG TABLET PO (08:25)
[2025-07-07] MEDS: DOCUSATE 100 MG CAPSULE PO (08:25)
[2025-07-07] MEDS: PANTOPRAZOLE DR 40 MG TABLET PO (08:25)
[2025-07-07] MEDS: CHOLECALCIFEROL (VITAMIN D3) 1,000 UNIT TABLET 2000 UNIT PO (08:25)
[2025-07-07] MEDS: TAMSULOSIN 0.4 MG CAPSULE PO (08:25)
[2025-07-07 09:00] VITALS: BP 138/61; PULSE 63; RESP 18; TEMP 35.9; O2SAT 97
--- NOTE | 2025-07-07 10:47 | PT.IPTN ---
Current Diagnoses Unilateral primary osteoarthritis, right hip (07/06/25) Surgery Performed Operation Date: 07/06/25 11:15 Actual Procedures p Total Hip Arthroplasty/Anterior Approach(Right) - Antonio Holm MD Physical Therapy Treatment Note M2 PT-IP Current Condition Start: 07/06/25 17:12 Freq: NEEDED Status: Active Protocol: Document 07/06/25 17:12 SAK (Rec: 07/06/25 17:25 SAK [id number]) Physical Therapy Current Condition Current Condition Evaluation Date 07/06/25 Treatment Diagnosis s/p right KELLEY Onset Date 07/06/25 M3 PT-IP Subjective Start: 07/06/25 17:12 Freq: NEEDED Status: Active Protocol: Document 07/07/25 10:05 MB (Rec: 07/07/25 10:47 MB Desktop) Subjective Physical Therapy Visit Type Type Treatment Note Visit Start Time 10:05 Visit Stop Time 10:38 Number of PATHOLOGY TECH Visits 0 Physical Therapy Visit Comments Patient Comments Pt is agreeable to PT, has been woozy today and thinks it is because of the medication. Therapy Pain Assessment Pain When Pain Assessed During Mobility Pain Present Pain Present Pain Reported Location Right Hip Intensity 7 Scale Used Numeric (0 - 10) Pain Management Distraction,Modification of Treatment,Re-positioning Techniques M4 PT-IP Mobility and Gait Start: 07/06/25 17:12 Freq: NEEDED Status: Active Protocol: Document 07/07/25 10:05 MB (Rec: 07/07/25 10:47 MB Desktop) PT-Bed Mobility Assessment Rolling Type of Rolling Roll to Right Level of Assist Independent Supine to Sit Supine to Sit Independent Scooting Scooting to Edge of Independent Bed PT-Transfer Assessment Sit to and From Stand Sit to and from Standby Assistance Stand Equipment Transfer Assistive Gait Belt,Front Wheeled Walker Device Orthotic/Prosthetic No Devices or Brace: Transfers Transfer Destination Chair Transfer Technique Ambulation Transfer Ability Level of Assist Standby Assistance Gait Assessment Gait Gait Assistance Independent,Standby Assistance Required: Distance (Feet) 100 Able to Maintain Yes Weight Bearing Status During Gait Assistive Devices Assistive Device Gait Belt,Front Wheeled Walker Orthotic/Prosthetic No Devices or Brace: Gait Deviations General Gait Pattern Antalgic,Decreased Stride Length,Decreased Feet Clearance Factors Limiting Gait Function Factors Limiting Pain Gait Function Comments Gait Comments 100'x2 with slow gait and mildly increased right toe in that he is able to correct with cues Stair Climbing Assessment Evaluation Level of Assist On Standby Assistance Stairs Devices Stair Climbing Left Railing Assistive Devices Technique/Endurance Stair Climbing Ascend and Descend Direction Stair Climbing Step to Step Technique Number of Steps 1 Climbed Stair Climbing Set # 1 Repetitions (reps) Comments Stair Climbing Cues for both hands on left rail ascend, ascend first Comments with left foot and both hands on right rail descend, right foot first PT-Balance Assessment Sitting Balance and Reactions Static Sitting Good Balance Ability Dynamic Sitting Good Balance Ability Standing Balance and Reactions Static Standing Good Balance Ability Dynamic Standing Good Balance Ability Device Used RW M5 PT-IP Objective Assessments Start: 07/06/25 17:12 Freq: NEEDED Status: Active Protocol: Document 07/07/25 10:05 MB (Rec: 07/07/25 10:47 MB Desktop) Other Assessments Other Other Assessments Orthostatic assessment with BP and HR in RUE: supine 123/58, 50; standing 126/51, 64; standing 1' 139/60, 60 . M6 PT-IP Treatment Start: 07/06/25 17:12 Freq: NEEDED Status: Active Protocol: Document 07/07/25 10:05 MB (Rec: 07/07/25 10:47 MB Desktop) Physical Therapy Treatment Other Treatments Other Treatment Doorway stretch for gentle pect, hip flexor and QL Performed stretch M7 PT-IP Assessment and Plan Start: 07/06/25 17:12 Freq: NEEDED Status: Active Protocol: Document 07/07/25 10:05 MB (Rec: 07/07/25 10:47 MB Desktop) PT Summary Assessment and Plan Potential Rehabilitation Good Potential Status of Condition Evolving at Evaluation Summary Impairments Pain,ROM,Strength,Balance,Gait,Activity Tolerance Progress Towards Progressing Toward Goals,Safe For Discharge Goals Assessment Summary Pt reports he is woozy today and has high pain in right hip. Orthostatic assessment is negative. Pt progresses with gait distance and steps, ed pt on hip flexor, anatomy related to spine and spinal changes. Con't assistance at home and OPPT at d/c. Will d/c acute PT. Pt has met acute PT goals. Frequency of Treatment Frequency Of Discharge Treatment Weight Bearing Status Weight Bearing Weight Bear as Tolerated Status Recommendations To Nursing Amount of Assist 1 Person Assist Needed Discharge Recommendations PT Discharge Home with Assistance,Outpatient PT Recommendations
--- NOTE | 2025-07-07 11:06 | OT.IP.EVAL ---
Current Diagnoses Unilateral primary osteoarthritis, right hip (07/06/25) Surgery Performed Operation Date: 07/06/25 11:15 Actual Procedures p Total Hip Arthroplasty/Anterior Approach(Right) - Antonio Holm MD Past Medical History (Last Updated 07/01/25 @ 13:21 by Tamela Garibay, RN) Anxiety Benign prostatic hyperplasia Bilateral hip pain Bilateral primary osteoarthritis of hip Erectile dysfunction Excessive daytime sleepiness Herniated nucleus pulposus, L5-S1 Low back pain Lumbar spondylosis Obstructive sleep apnea of adult Panic anxiety syndrome Raynauds syndrome Snoring Surgical History (Last Updated 07/01/25 @ 14:17 by Tamela Garibay, URSULA) History of arthroscopy of both knees History of colonoscopy History of thoracotomy (~2021) Hx of wisdom tooth extraction Occupational Therapy Inpatient Evaluation/Re-Eval M1 OT IP Prior Functional Status Start: 07/07/25 10:58 Freq: Status: Active Protocol: Document 07/07/25 11:00 [facility] (Rec: 07/07/25 11:06 [facility] Desktop) Medical Review Prior Functional Status Medical History Yes Reviewed Diet/Fluid Regular Consistency Communication indep Mobility and Gait indep Activities of Daily indep Living and IADL's Social History Household Members spouse Living Arrangements House Number of Floors ( Two Floors Floors) Number of Stairs To 5, 1 railing Enter/Railing? Home Environment Standard Height Toilet,Walk in Shower,Tub/Shower Home Equipment Front Wheel Walker,Shower Seat without Backrest Additional Social Pt has a toilet safety frame History Comment M2 OT-IP Current Condition Start: 07/07/25 10:58 Freq: Status: Active Protocol: Document 07/07/25 11:00 [facility] (Rec: 07/07/25 11:06 [facility] Desktop) Occupational Therapy Current Condition Current Condition Evaluation Date 07/07/25 Treatment Diagnosis S/P R KELLEY Diagnosis Onset Date 07/06/25 M3 OT- IP Subjective and Pain Start: 07/07/25 10:58 Freq: Status: Active Protocol: Document 07/07/25 11:00 [facility] (Rec: 07/07/25 11:06 [facility] Desktop) OT- Subjective Occupational Therapy Visit Type Type Initial Evaluation Visit Start Time 10:30 Visit Stop Time 10:56 Occupational Therapy Visit Comments Patient Comments Pt agreed to get up and get dressed. Patient/Caregiver TO go home. Goals OT Pain Assessment Pain When Pain Assessed At Rest Pain Present Pain Present Pain Reported Location Right Hip Intensity 6 Scale Used Numeric (0 - 10) M4 OT- IP ADL's Start: 07/07/25 10:58 Freq: Status: Active Protocol: Document 07/07/25 11:00 [facility] (Rec: 07/07/25 11:06 [facility] Desktop) OT [id number] General Evaluation Self-Feeding Ability Independent OT ADL-Grooming Comments OT Grooming Comments Not observed. OT ADL-Oral Care Comments Oral Care Comments Not observed. OT ADL-Dressing General Eval Upper Body Dressing Independent Ability Lower Body Dressing Minimal Assistance Ability Comments OT Dressing Comments Pt will need assist for socks, otherwise able to use sock aid and do independently. Pt educated to dress the RLE first and take out last. OT ADL-Toileting Comments OT Toileting Suggested to bring the urinal home. Comments OT ADL-Bathing Comments OT Bathing Comments Spoke on care for the bandage while showering. M5 OT- IP IADL's Start: 07/07/25 10:58 Freq: Status: Active Protocol: Document 07/07/25 11:00 [facility] (Rec: 07/07/25 11:06 [facility] Desktop) OT-Instrumental Activities of Daily Living Home Safety Awareness Awareness of Need Good Awareness for Assistance at Home Ability to Problem Able to Problem Solve Solve Emergency Situations Meal Preparation Meal Preparation Pt will have assist. Comments Tax Agent Tax Agent Pt will have assist. Comments M6 OT- IP Functional Cognition Start: 07/07/25 10:58 Freq: Status: Active Protocol: Document 07/07/25 11:00 [facility] (Rec: 07/07/25 11:06 [facility] Desktop) Cognitive Factors Limiting Selfcare Function Cognitive Ability Level of Alertness Alert Patient Orientation Name,Age,Birthday,Month,Date,Year,Day of Week,Place, Situation Attention Span Capable of Focused Attention,Capable of Sustained Ability Attention Cognitive Comments Cognitive Assessment Pt able to follow commands for ADL and mobility needs. Comments OT- Vision and Hearing OT- Hearing Assessment OT- Hearing WFL Assessment OT- Vision Assessment Visual Acuity WFL Visual Attentiveness WFL Occular Pursuits WFL M7 OT- IP Mobility and Balance Start: 07/07/25 10:58 Freq: Status: Active Protocol: Document 07/07/25 11:00 [facility] (Rec: 07/07/25 11:06 [facility] Desktop) OT-Transfer Assessment Sit to and From Stand Sit to and from Standby Assistance Stand Comments Mobility Comments Pt able to some to stand for dressing needs with FWW with SBA. OT- Balance Assessment Sitting Balance and Reactions Static Sitting Normal Balance Ability Dynamic Sitting Normal Balance Ability Standing Balance and Reactions Static Standing Good Balance Ability M8 OT- IP Objective Assessments Start: 07/07/25 10:58 Freq: Status: Active Protocol: Document 07/07/25 11:00 [facility] (Rec: 07/07/25 11:06 [facility] Desktop) OT Gross Range of Motion Upper Extremity Range of Motion Assessment Within Functional Limits OT Strength Upper Extremity Strength Assessment Within Functional Limits M9 OT- IP Assessment and Plan Start: 07/07/25 10:58 Freq: Status: Active Protocol: Document 07/07/25 11:00 [facility] (Rec: 07/07/25 11:06 [facility] Desktop) OT Summary Assessment and Plan Potential Rehabilitation Excellent Potential Analytic Complexity Low at Evaluation Summary OT Impairments Pain,Functional Mobility,Dressing,Bathing,Shower Transfers Progress Towards Progressing Toward Goals Goals Assessment Summary Pt low complexity and main barriers are steps, pain , and will need assist for LB dressing and showering needs. Pt to go home with assist when medically stable and go to outpt PT. Goals Toileting Goal Independent Bathing Goal Independent Toilet Transfer Goal Independent Shower Transfer Goal Independent Days to Meet Goals 5 Frequency of Treatment Other frequency 5x/week Treatment Plan OT Treatment Plan ADL Training,Functional Mobility,Patient/Family Education,Discharge Planning Discharge Recommendations OT Discharge Home with Assistance,Outpatient PT Recommendations Transportation Needs Private Vehicle at Discharge
--- NOTE | 2025-07-07 12:42 | CM.DANOTE ---
DCP Assessment Note: Pt is a 70yo male, resident of [place], is admitted s/p R KELLEY. Pt lives in a house with their , Karina. Pt's Primary Care Provider is Dr. Aby Dubois and insurance is Medicare and [employer]. Reviewed chart and discussed with multidisciplinary team pt's medical status and initial discharge needs. Per Provider, pt cleared for discharge home with spouse to transport. Per PT, recommending home with outpatient PT. No discharge needs identified. Per RN, pt [facility] so discharge needed by 1330. Plan: Anticipating discharge home with spouse to transport. CM team will follow closely for coordination of discharge plans. ANDREW Loomis Discharge Planning/Care Management CM Discharge Assessment Start: 07/06/25 13:18 Freq: Status: Active Protocol: Document 07/07/25 11:21 MW (Rec: 07/07/25 11:25 MW [id number]) Discharge Planning Assessment Assigned Discharge ANTOLIN Wilkerson Commercial Engineer Provider Aby Dubois MD Insurance [employer],Medicare DPOA/Assigned Karina Quast, Designee Name Advance Directives? Yes Advance Directives No on File History Provided By Patient,Medical Record Prior Living House Arrangements Household Members spouse Type of Drives own vehicle transporation used prior to admit Independent with ADL Yes 's Is patient alert and Yes oriented? Discharge Plan Home Transportation Spouse Arrangement Review Status In Process Please Provide Date 07/07/25 Initial DC Assessment Was Performed Next Review Type Continued Stay Review
--- NOTE | 2025-07-07 13:17 | PC.NURSE ---
Patient is A&OX4, VSS, afebrile on RA. He reports pain is well controlled with PRN pain medications. He is able to ambulate with SBA using FWW to void and reports voiding w/o difficulty. Pt is evaluated by MARQUITA this a.m. and clears PT/OT. PA returns to medically clear patient to discharge back to [facility] with his . He acknowledges site care, activity restrictions, s/sx of infection, medications and follow up appointment. He is escorted via w/ch to private vehicle with his for discharge home today at 1222pm
== END 2025-07-07 12:22 | disposition home or self-care (01) ==
LOC: OR 13:17 → AC 13:18 → OR 13:29 → AC 13:29
PROVIDERS: PCP Specialist; Referring Provider Orthopaedic Surgery Adult Reconstructive Orthopaedic Surgery; Visit Provider Orthopaedic Surgery Adult Reconstructive Orthopaedic Surgery
PROC: (CPT 27130; principal; 2025-07-06 11:15)
DX: M16.11 Unilateral primary osteoarthritis, right hip (principal); M25.751 Osteophyte, right hip
CPT/HCPCS: 27130; 0054T; 73502; 76000; 97116; 97162; 97165; 97530; 97535; C1776; J0689; J1171; J1885; J2250; J2405; J2704; J3010; J7120